=== PATIENT | female | born 1980 | race Caucasian/White ===

== ENCOUNTER 2017-01-13 06:12 | Inpatient (IN) | payer BC ==
[~2017-01-13 06:12] MED LIST: Buffered Lidocaine 0.9% SYRIN* 5 ML/SYR SYRINGE INTRADERM ONE; Famotidine IV* 10 MG/ML 2 ML (20 mg) IV ONE
[2017-01-13] MEDS ORDERED: ceFOXitin 2 GM IVPREMIX* 2 GM/50 ML BAG ONE (07:13)
[2017-01-13] MEDS ORDERED: fentaNYL* 50 MCG/ML 2 ML VIAL (100 MCG VIAL) ONE (07:31)
[2017-01-13] MEDS ORDERED: KETAMINE HCL* 50 MG/ML 10 ML VIAL ONE (07:31)
[2017-01-13] MEDS ORDERED: Midazolam* 1 MG/ML 5 ML VIAL (5 MG) ONE (07:31)
[2017-01-13] MEDS ORDERED: Morphine PF AMP (0.5MG/ML)* 5 MG/10 ML AMP ONE (07:31)
[2017-01-13] MEDS ORDERED: diPHENhydraMINE IV* 50 MG/ML 1 ml VIAL (BENADRYL) IV PRN (08:08)
[2017-01-13] MEDS ORDERED: Naloxone* 0.4 MG/ML 1 ML VIAL IV PRN (08:08)
[2017-01-13] MEDS ORDERED: Nalbuphine* 20 MG/ML 1 ML VIAL IV PRN (08:08)
[2017-01-13] MEDS ORDERED: Ondansetron INJ* 2 MG/ML VIAL IV PRN (08:08)
[2017-01-13] MEDS ORDERED: PROCHLORPERAZINE INJ 5 MG/ML 2 ML VIAL IV PRN (08:08)
[2017-01-13] MEDS ORDERED: Scopolomine PATCH Remove* 1 NOTE MISC PATCH OFF PRN (08:08)
[2017-01-13] MEDS ORDERED: Naloxone* 2 MG in NS 0.9% 250 ML* 250 ML IV PRN (08:08)
[2017-01-13] MEDS ORDERED: fentaNYL* 50 MCG/ML 2 ML VIAL (100 MCG VIAL) IV PRN (08:11)
[2017-01-13] MEDS ORDERED: Dexamethasone IV* 4 MG/ML 1 ML (4 MG) ONE (08:49)
[2017-01-13] MEDS ORDERED: OXYTOCIN* 10 UNITS/ML 1 ML VIAL ONE (08:49)
[2017-01-13] MEDS ORDERED: EPHEDrine (Pressors)* 50 MG/ML VIAL ONE (08:49)
[2017-01-13] MEDS ORDERED: Ondansetron INJ* 2 MG/ML VIAL ONE (08:49)
[2017-01-13] MEDS ORDERED: Phenylephrine INJ* 10 MG/ML 1 ML VIAL (10 MG) ONE (08:49)
[2017-01-13] MEDS ORDERED: Witch Hazel PAD* JAR TOPICAL PRN (08:59)
[2017-01-13] MEDS ORDERED: Dibucaine 1% 28.35 GM TUBE PR PRN (08:59)
[2017-01-13] MEDS ORDERED: oxyCODONE/Acetamin 5/325 MG* TAB PO PRN ×2 (08:59)
[2017-01-13] MEDS ORDERED: Glycerin ADULT SUPP PR PRN (08:59)
[2017-01-13] MEDS ORDERED: Oxytocin in LR* 20 UNITS/1,000 ML BAG IVPB SCH (09:00)
[2017-01-13] MEDS: Ibuprofen TAB* 600 MG PO SCH ×3 (10:45→23:50)
[2017-01-13] MEDS: HYDROcodone/ACETAMIN 5-325 MG* 1 TAB PO PRN ×2 (10:45→15:25)
[2017-01-13] MEDS: Docusate CAP* 100 MG PO SCH ×3 (10:46→21:14)
[2017-01-13] MEDS: Simethicone CHEW TAB* 80 MG PO SCH ×3 (15:25→21:14)
--- NOTE | 2017-01-13 15:43 | PTEDU ---
Patient Name: JOSE CORBIN EMERALDJOSE JUNIOR selected video: Never Ever Shake a Baby to view on 01/13/2017 at 3:41:31 PM from [facility] [id number]
[2017-01-13] MEDS ORDERED: Mometasone 220 MCG MDI INH SCH (22:00)
--- NOTE | 2017-01-13 23:31 | OP ---
DATE OF OPERATION: 01/13/17 - ROOM #117 DATE OF : 82 SURGEON: Joaquín Dasilva MD ASSISTANTS: 1. Lavonne Barrios MD 2. Radha Lucia CNM ANESTHESIOLOGIST: Selwyn Loya MD ANESTHESIA: Spinal. PRE-OP DIAGNOSES: Previous section, desires permanent sterilization. POST-OP DIAGNOSES: Previous section, desires permanent sterilization, macrosomia. OPERATIVE PROCEDURE: Low transverse section, bilateral tubal ligation. FINDINGS: This is a 36-year-old 2, para 1 with a previous section, desired an elective repeat and permanent sterilization. At the time of , she had a viable male, Apgars 8 and 9, weight was 9 pounds 10 ounces. Both fallopian tubes and ovaries appeared normal. ESTIMATED BLOOD LOSS: 600 cc. SPECIMEN: Includes bilateral tubes. COMPLICATIONS: None. DESCRIPTION OF PROCEDURE: The patient identified, procedure identified as a low transverse section. The patient was taken to the operating room, prepped and draped in the usual fashion in the left lateral recumbent position under spinal anesthesia. A Pfannenstiel incision was made in the abdomen and carried down through fat, fascia, and peritoneum. An Diogo retractor was placed within the abdominal cavity. A transverse incision was made in the lower uterine segment, extended laterally using blunt dissection. The above delivered through the incision with ease. The cord was doubly clamped and cut and the was handed to the awaiting justice court deputy clerk. Cord blood was obtained. Placenta delivered spontaneously. The uterus was wiped out with wet lap sponge. The uterine incision was then closed using 0 Polysorb in a running fashion. A second layer was used to imbricate the first layer. Hemostasis was verified. The right fallopian tube was grasped, followed out to its fimbriated end. A Smitha was placed across the fimbria and the fimbria was excised, 2-0 Polysorb ties were used to ligate the end of the tube. Same procedure was carried out on the left, following it out to its fimbriated end. Hemostasis was verified. The gutters of the abdomen was inspected and found to be free of clot. Good hemostasis was verified. Peritoneum was then closed using 3-0 Polysorb in a running fashion. Good hemostasis achieved in the subrectus layers. The fascia was closed using 0 Polysorb in a running fashion. Good hemostasis achieved in the subcu. The deep space was closed using 3-0 Polysorb in a simple fashion. Copious irrigation was utilized and suctioned out and the skin was closed with 4-0 Monocryl in a subcuticular fashion. Steri-Strips were applied. All sponge and instrument counts were correct. [id number] #: [id number] MTDD
[2017-01-13] MEDS ORDERED: HYDROcodone/ACETAMIN 5-325 MG* 1 TAB PO PRN (23:48)
[2017-01-13] MEDS: PTO: Beclomethasone 80 MCG MDI(NF) 80 MCG/PUFF MDI INH SCH (23:49)
[2017-01-14] MEDS: Ibuprofen TAB* 600 MG PO PRN ×3 (07:02→20:38)
[2017-01-14] MEDS: Acetaminophen TAB* 325 MG PO PRN ×2 (07:02→13:36)
[2017-01-14] MEDS: Thyroid TAB* 30 MG PO SCH (07:03)
[2017-01-14 08:11] LABS: Hematocrit 32 % (35-47); Hemoglobin 10.6 g/dl (12.0-16.0); Mean Corpuscular HGB Conc 33 g/dl (31-36); Mean Corpuscular Hemoglobin 29 pg (27-31); Mean Corpuscular Volume 86 fL (80-97); Mean Platelet Volume 9 um3 (7.4-10.4); Red Blood Count 3.71 10^6/ul (4.0-5.4); Red Cell Distribution Width 16 % (10.5-15); White Blood Count 15.2 10^3/ul (3.5-10.8)
[2017-01-14] MEDS: Docusate CAP* 100 MG PO SCH ×3 (08:54→20:39)
[2017-01-14] MEDS: Simethicone CHEW TAB* 80 MG PO SCH ×4 (08:54→20:39)
[2017-01-14] MEDS: PTO: Beclomethasone 80 MCG MDI(NF) 80 MCG/PUFF MDI INH SCH ×2 (08:55→20:45)
[2017-01-14] MEDS ORDERED: Tetan/Diph/Pertus SYR(Tdap)* 0.5 ML SYR(BOOSTRIX) use SYR IM ONE (09:00)
[2017-01-14] MEDS ORDERED: Methyldopa TAB* 250 MG PO SCH (09:00)
[2017-01-14] MEDS: Ferrous Gluconate TAB* 324 MG TAB PO SCH ×2 (13:27→20:57)
[2017-01-14] MEDS: HYDROcodone/ACETAMIN 5-325 MG* 1 TAB PO PRN (20:42)
[2017-01-14] MEDS: PTO: Methyldopa TAB* 250 MG PO SCH (20:45)
[2017-01-14] MEDS ORDERED: Zolpidem TAB* 5 MG PO PRN (21:00)
[2017-01-15] MEDS: HYDROcodone/ACETAMIN 5-325 MG* 1 TAB PO PRN ×5 (00:42→20:15)
[2017-01-15] MEDS: Ibuprofen TAB* 600 MG PO PRN ×3 (04:07→16:35)
[2017-01-15] MEDS: Thyroid TAB* 30 MG PO SCH (08:30)
[2017-01-15] MEDS: Docusate CAP* 100 MG PO SCH ×3 (08:31→20:15)
[2017-01-15] MEDS: Simethicone CHEW TAB* 80 MG PO SCH ×4 (08:31→20:15)
[2017-01-15] MEDS: PTO: Beclomethasone 80 MCG MDI(NF) 80 MCG/PUFF MDI INH SCH ×2 (08:32→20:17)
[2017-01-15] MEDS: PTO: Methyldopa TAB* 250 MG PO SCH ×2 (08:32→20:17)
[2017-01-16] MEDS: Ibuprofen TAB* 600 MG PO PRN ×2 (00:14→06:12)
[2017-01-16] MEDS: HYDROcodone/ACETAMIN 5-325 MG* 1 TAB PO PRN (03:33)
[2017-01-16] MEDS: PTO: Methyldopa TAB* 250 MG PO SCH (08:01)
[2017-01-16] MEDS: Docusate CAP* 100 MG PO SCH (08:02)
[2017-01-16] MEDS: Simethicone CHEW TAB* 80 MG PO SCH (08:02)
[2017-01-16] MEDS: Thyroid TAB* 30 MG PO SCH (08:02)
[2017-01-16] MEDS: PTO: Beclomethasone 80 MCG MDI(NF) 80 MCG/PUFF MDI INH SCH (08:02)
[2017-01-16 08:19] VITALS: BP 141/84
[2017-01-16] MEDS: Acetaminophen TAB* 325 MG PO PRN (12:05)
== END 2017-01-16 12:17 | disposition home or self-care (01) | DRG 540 ==
LOC: MCHOB 06:12
PROVIDERS: ADMIT Obstetrics & Gynecology; ATTEND Obstetrics & Gynecology
PROC: 0UB70ZZ Excision of Bilateral Fallopian Tubes, Open Approach (ICD-10-PCS; 2017-01-13)
PROC: 10D00Z1 Extraction of Products of Conception, Low, Open Approach (ICD-10-PCS; principal; 2017-01-13 07:45)
DX: O34.211 Maternal care for low transverse scar from previous cesarean delivery (principal); Z68.42 Body mass index [BMI] 45.0-49.9, adult; O99.214 Obesity complicating childbirth; E66.01 Morbid (severe) obesity due to excess calories; O99.284 Endocrine, nutritional and metabolic diseases complicating childbirth; E03.9 Hypothyroidism, unspecified; Z3A.39 39 weeks gestation of pregnancy; Z37.0 Single live birth
CPT/HCPCS: 36415; 85025; 88305; A9270-GY; J0694; J1100; J2250; J2405; J2590; J3010

== ENCOUNTER 2018-06-28 12:36 | Emergency (ER) | payer BC ==
[2018-06-28 13:07] VITALS: BP 159/104
--- NOTE | 2018-06-28 13:36 | UC ---
General HPI - HPI Summary HPI Summary: Stated two days ago began with high fever 101.6, chills, cough and congestion. Two kids are both sick. More short of breath with exertion. Is using her albuterol inhaler nearly every 4 hours. States her BP is elevated since she has been sick. Decrease PO with nausea. No vomiting or diarrhea. PMHx: asthma , Meds: Reviewed. Did get a flu shot. being seen in urgent care as well - History of Current Complaint Chief Complaint: UCGeneralIllness Stated Complaint: FEVER SOB UNCONTROLLED BP Time Seen by Provider: 06/28/18 13:19 Hx Last Menstrual Period: Pain Intensity: 5 - Allergy/Home Medications Allergies/Adverse Reactions: Allergies Allergy/AdvReac Type Severity Reaction Status Date / Time [facility] Allergy Intermediate Hives Verified 06/28/18 13:09 clarithromycin Allergy Intermediate Hives Verified 06/28/18 13:09 erythromycin base Allergy Intermediate Hives Verified 06/28/18 13:09 guaifenesin Allergy Intermediate Hives Verified 06/28/18 13:09 Home Medications: Home Medications Fluticasone HFA 44 mcg(NF) [Flovent Hfa 44 mcg(NF)] 2 puff INH BID 06/28/18 [ History Confirmed 06/28/18] 105/Iron/Folic AC/Dha [Prena 1 True 30-1.4 & 300 mg] 1 mis PO DAILY [History Confirmed 06/28/18] hydrALAZINE TAB* [Apresoline TAB*] 10 mg PO TID 06/28/18 [History Confirmed ] PMH/Surg Hx/FS Hx/Imm Hx Previously Healthy: Yes Endocrine History: Hypothyroidism Cardiovascular History: Hypertension - Surgical History Surgical History: Yes Surgery Procedure, Year, and Place: left femur pin. bilateral knee. right wrist. 2 c- section - Social History Alcohol Use: None Substance Use Type: None Smoking Status (MU): Never Smoked Tobacco - Immunization History Most Recent Influenza Vaccination: received this 2016 Most Recent Pneumonia Vaccination: Has not received Review of Systems All Other Systems Reviewed And Are Negative: Yes Constitutional: Positive: Fever, Chills ENT: Positive: Sore Throat, Nasal Discharge, Sinus Congestion Respiratory: Positive: Shortness Of Breath, Cough Cardiovascular: Positive: Negative Gastrointestinal: Positive: Nausea Physical Exam Triage Information Reviewed: Yes Appearance: Well-Appearing, No Pain Distress Vital Signs: Initial Vital Signs Temp 97.7 F 06/28/18 13:02 Pulse 104 06/28/18 13:02 Resp 22 06/28/18 13:02 BP 159/104 06/28/18 13:02 Pulse Ox 98 06/28/18 13:02 Eyes: Positive: Conjunctiva Clear ENT: Positive: Pharyngeal erythema, Nasal congestion, TMs normal Neck exam: Normal Neck: Positive: Supple Respiratory: Positive: Other: - diminished breath sounds, faint expiratory wheeze. No increase in work of breathing. No rhonchi Course/Dx - Course Course Of Treatment: This is a 37 yr old with PMhx of asthma and HTN who presents with cough and congestion. Assessment. No respiratory distress. Flu : Positive. Plan. Start Tamiflu as prescribed. Continue Albuterol every 4 hours as while sick then change to as needed. Continue flovent as prescribed. Tesssalon pearles as pescribed as needed for cough. Continue to drink plenty of fluids. Can do tylenol and/or ibuprofen as needed for pain/fever. Recommend recording your next several blood pressure readings and follow up with your primary care doctor. If symptoms persist or worsen, call primary for further evaluation or return to the ER/Urgent care - Diagnoses Provider Diagnosis: Influenza A, Asthma, Hypertension Discharge - Sign-Out/Discharge Documenting (check all that apply): Patient Departure All imaging exams completed and their final reports reviewed: No Studies - Discharge Plan Condition: Fair Disposition: HOME Prescriptions: Benzonatate CAP* [Tessalon 100 MG CAP*] 200 mg PO BID PRN #30 cap PRN Reason: Cough Oseltamivir CAP* [Tamiflu CAP*] 75 mg PO BID #10 cap Patient Education Materials: Influenza (ED) Referrals: Taylor Soto MD [Primary Care Provider] - Additional Instructions: Start Tamiflu as prescribed Continue Albuterol every 4 hours as while sick then change to as needed Continue flovent as prescribed Tesssalon pearles as pescribed as needed for cough Continue to drink plenty of fluids Can do tylenol and/or ibuprofen as needed for pain/fever Recommend recording your next several blood pressure readings and follow up with your primary care doctor If symptoms persist or worsen, call primary for further evaluation or return to the ER/Urgent care - Billing Disposition and Condition Condition: FAIR Disposition: Home
[2018-06-28 13:54] LABS: Influenza A Molecular POSITIVE (Negative)
== END 2018-06-28 14:15 | disposition home or self-care (01) ==
LOC: UCEAST 12:36
DX: J10.1 Influenza due to other identified influenza virus with other respiratory manifestations (principal); J45.909 Unspecified asthma, uncomplicated; I10 Essential (primary) hypertension; Z79.51 Long term (current) use of inhaled steroids; Z88.1 Allergy status to other antibiotic agents; Z88.8 Allergy status to other drugs, medicaments and biological substances
CPT/HCPCS: 99212; G0463

== ENCOUNTER 2018-08-20 11:23 | Emergency (ER) | payer BC ==
[2018-08-20 12:19] VITALS: BP 128/91
--- NOTE | 2018-08-20 12:51 | UC ---
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---she has had no injury and never had pain like this before - History Of Current Complaint Chief Complaint: UCBackPain Stated Complaint: HIP PAIN Time Seen by Provider: 08/20/18 12:39 Hx Obtained From: Patient Hx Last Menstrual Period: 08/05/18 ?: No Onset/Duration: Sudden Onset, Lasting Days - 2 Timing: Constant Pain Intensity: 8 Pain Scale Used: 0-10 Numeric Location: Discrete At: - right buttock Character Of Pain: Throbbing, Spasmodic Aggravating Factor(s): Movement, Weight Bearing Alleviating Factor(s): Nothing Associated Signs And Symptoms: Positive: Negative - Allergies/Home Medications Allergies/Adverse Reactions: Allergies Allergy/AdvReac Type Severity Reaction Status Date / Time cefaclor [From Ceclor] Allergy Intermediate Hives Verified 08/20/18 12:19 clarithromycin Allergy Intermediate Hives Verified 08/20/18 12:19 erythromycin base Allergy Intermediate Hives Verified 08/20/18 12:19 guaifenesin Allergy Intermediate Hives Verified 08/20/18 12:19 PMH/Surg Hx/FS Hx/Imm Hx Previously Healthy: No Endocrine History: Hypothyroidism Respiratory History: Asthma - Surgical History Surgical History: Yes Surgery Procedure, Year, and Place: left femur pin. bilateral knee. right wrist. 2 c- section - Family History Known Family History: Positive: Hypertension - Social History Occupation: Employed Full-time Lives: With Family Alcohol Use: Rare Substance Use Type: None Smoking Status (MU): Never Smoked Tobacco - Immunization History Most Recent Influenza Vaccination: received this season 2016 Most Recent Pneumonia Vaccination: Has not received Review of Systems All Other Systems Reviewed And Are Negative: Yes Constitutional: Positive: Negative Skin: Positive: Negative Eyes: Positive: Negative ENT: Positive: Negative Respiratory: Positive: Negative Cardiovascular: Positive: Negative Gastrointestinal: Positive: Negative Genitourinary: Positive: Negative Motor: Positive: Negative Neurovascular: Positive: Negative Musculoskeletal: Positive: Arthralgia, Myalgia - right buttock Neurological: Positive: Negative Psychological: Positive: Negative Is Patient Immunocompromised?: Yes Physical Exam Triage Information Reviewed: Yes Appearance: Well-Appearing, Pain Distress, Obese Vital Signs: Initial Vital Signs Temp 97.3 F 08/20/18 12:16 Pulse 88 08/20/18 12:16 Resp 18 08/20/18 12:16 BP 128/91 08/20/18 12:16 Pulse Ox 99 08/20/18 12:16 Vital Signs Reviewed: Yes Eye Exam: Normal Eyes: Positive: Conjunctiva Clear ENT Exam: Normal ENT: Positive: Normal ENT inspection, Hearing grossly normal. Negative: Trismus , Muffled voice, Hoarse voice, Dental tenderness, Sinus tenderness Dental Exam: Normal Neck exam: Normal Neck: Positive: Supple, Nontender Respiratory Exam: Normal Respiratory: Positive: Chest non-tender, No respiratory distress, No accessory muscle use Cardiovascular Exam: Normal Cardiovascular: Positive: RRR, Pulses Normal, Brisk Capillary Refill Musculoskeletal Exam: Normal Musculoskeletal: Positive: Strength Intact, ROM Intact, No Edema Neurological Exam: Normal Neurological: Positive: Alert, Muscle Tone Normal Psychological Exam: Normal Skin Exam: Normal Hip Injury Course/Dx - Course Course Of Treatment: painrelief with toradol----patient will stop ibuprofen and use tordal she is also requesting a flexeril---patient advised if she takes it not to breast feed- -low back exercises provided and referral to physical therapy - Differential Dx/Diagnosis Provider Diagnosis: Piriformis syndrome of right side Discharge - Sign-Out/Discharge Documenting (check all that apply): Patient Departure All imaging exams completed and their final reports reviewed: No Studies - Discharge Plan Condition: Stable Disposition: HOME Prescriptions: Cyclobenzaprine TAB* [Flexeril 10 MG TAB*] 10 mg PO BID PRN #6 tab PRN Reason: muscle spasm Ketorolac TAB * [Toradol TAB *] 10 mg PO TID #15 tab Patient Education Materials: Muscle Spasm (ED), Piriformis Syndrome (ED), Lower Back Exercises (ED) Referrals: Taylor Soto MD [Primary Care Provider] - 3 Days - Billing Disposition and Condition Condition: STABLE Disposition: Home
[2018-08-20] MEDS ORDERED: Ketorolac INJ* 60 MG/2 ML VIAL IM ONE (12:55)
== END 2018-08-20 13:45 | disposition home or self-care (01) ==
LOC: UCEAST 11:23
DX: G57.01 Lesion of sciatic nerve, right lower limb (principal); E03.9 Hypothyroidism, unspecified; J45.909 Unspecified asthma, uncomplicated; Z88.1 Allergy status to other antibiotic agents; Z88.8 Allergy status to other drugs, medicaments and biological substances
CPT/HCPCS: 96372; 99212; G0463; J1885